=== PATIENT | female | born 1955 | race Caucasian/White ===

== ENCOUNTER 2023-01-26 11:04 | Outpatient (REF) | payer OTHER, SELFPAY ==
[2023-01-26 14:03] LABS: MANUAL DIFF FLAG NO
[2023-01-26 14:12] LABS: Basophils Percent Auto 0.5 % (0-2); Eosinophils Percent Auto 0.2 % (0-4); Hematocrit 45.6 % (37.0-47.0); Hemoglobin 15.5 g/dl (12.0-16.0); Imm Gran Abs Auto 0.03 X10*3/uL (0.00-0.03); Imm Gran Pct Auto 0.5 % (0.0-0.4); Lymphocytes Absolute Auto 1.7 X10*3/uL (1.2-4.9); Mean Corpuscular Hemoglobin 35.9 pg (27.0-33.0); Mean Corpuscular Volume 105.6 fL (80.0-98.0); Mean Platelet Volume 9.5 fL (9.4-12.3); Monocytes Absolute Auto 0.5 X10*3/uL (0.1-1.2); Monocytes Percent Auto 8.4 % (2-11); Neutrophils Absolute Auto 4.1 x10*3/uL (2.0-8.3); Neutrophils Percent Auto 64.4 % (45-73); Platelet Count 223 X10*3/uL (160-400); Red Blood Count 4.32 X10*6/uL (4.20-5.50); Red Cell Distribution Width 12.5 % (11.0-16.0); White Blood Count 6.4 X10*3/uL (4.8-10.8)
[2023-01-26 14:47] LABS: Alanine Aminotransferase 39 U/L (0-31); Albumin Level 4.3 g/dL (3.5-5.0); Alkaline Phosphatase 93 U/L (39-117); Anion Gap 15 (12-20); Aspartate Amino Transferase 65 U/L (5-31); Blood Urea Nitrogen 9 mg/dL (9-16); Calcium 9.6 mg/dL (8.4-10.2); Carbon Dioxide 26 mmol/L (22-29); Chloride 103 mmol/L (96-108); Cholesterol 226 mg/dL; Estimated Glomerular Filt Rate > 60; Glucose Fasting 104 mg/dL (60-99); HDL Cholesterol 89 mg/dL; LDL Cholesterol Calculated 122 mg/dl; Potassium 4.3 mmol/L (3.3-5.1); Sodium 140 mmol/L (135-145); Total Protein 7.1 g/dL (6.5-8.0); Triglycerides 79 mg/dL
[2023-01-26 15:11] LABS: Free T4 (Free Thyroxine) 0.78 ng/dL (0.71-1.85); Thyroid Stimulating Hormone 1.43 uIU/mL (0.32-4.0)
[2023-01-27 20:14] LABS: Thyroid Peroxidase Antibodies <1 IU/mL (<9)
== END 2023-01-26 11:05 | disposition home or self-care (01) ==
LOC: HO.MANLDS 11:04
PROVIDERS: Visit Provider Physician Assistant
DX: Z00.00 Encounter for general adult medical examination without abnormal findings (principal); Z83.49 Family history of other endocrine, nutritional and metabolic diseases; G93.32 Myalgic encephalomyelitis/chronic fatigue syndrome; E78.00 Pure hypercholesterolemia, unspecified
CPT/HCPCS: 36415; 80053; 80061; 84439; 84443; 85025; 86376

== ENCOUNTER 2023-02-11 09:40 | Outpatient (REF) | payer OTHER, SELFPAY ==
--- NOTE | ~2023-02-11 | MR_ITS ---
EXAMINATION: MR LUMBAR SPINE WITHOUT CONTRAST CLINICAL INFORMATION: Intervertebral disc degeneration. The patient states history of fall 8 months prior. COMPARISON: There are no prior studies available for comparison at time of dictation. TECHNIQUE: MRI of the lumbar spine was obtained using routine sequences without contrast. FINDINGS: VERTEBRAL BODIES AND PARASPINAL STRUCTURES: There is mild levoscoliosis. There is a retrolisthesis of L1 on L2. There is multilevel narrowing of intervertebral disc height with loss of signal throughout the lumbar spine. There are degenerative endplate changes with edematous signal at L1-L2. There is a severe compression fracture the body of T12 with posterior protrusion of the superior body into the spinal canal. There is loss of 90% vertebral body height anteriorly. This vertebral body has hyperintense STIR signal, which extends into the bilateral T12 pedicles, and these findings are consistent with an acute compression fracture. Mild edematous signal is seen in the anterior body of T11, but vertebral body height is maintained. There is invagination of disc into the inferior endplate of L1; this is age-indeterminate and may be some acute as there is mild increased signal in the posterior inferior body of L1. There is loss of approximately 40% vertebral body height inferiorly. Milder disc protrusion is seen in the inferior endplate of L2 and there are multilevel Schmorl's nodes. Vertebral body heights are maintained at other levels. There are fatty endplate signal changes at multiple levels. Overall, marrow signal is slightly heterogenous. The paraspinal muscles are fatty atrophic. The right kidney is slightly ptotic. The visualized pelvic structures are unremarkable. CONUS MEDULLARIS AND CAUDA EQUINA: Normal, terminating at the level of L1. Accounting for artifact there is no abnormal signal within the cord. The lower thoracic spinal cord appears normal. The cauda equina nerve roots and filum terminale appear normal. 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 SPINAL LEVELS: T11-T12: There is mild bilateral facet arthropathy. There is posterior protrusion of the posterior body of T12 into the spinal canal which distorts the ventral thecal sac with impingement on the ventral aspect of the spinal cord, without overt compression. There is approximately 30% central stenosis, most prominent to the right of midline. The neural foramina are patent bilaterally. T12-L1: There is mild bilateral facet arthropathy. Posterior disc contour is normal and there is no central stenosis. The neural foramina are patent bilaterally. L1-L2: There is mild to moderate bilateral facet arthropathy. There is a posterior disc protrusion with mild flattening of the ventral thecal sac but there is no central stenosis. There are bilateral foraminal disc protrusions with impingement on the exiting L1 nerve roots. L2-L3: There is moderate bilateral facet arthropathy with ligamenta flava hypertrophy and facet joint effusions. There is a left-sided disc protrusion which narrows the left subarticular recess and extends into the inferior left neural foramen without definite exiting nerve root impingement. There is mild central stenosis. L3-L4: There is moderate bilateral facet arthropathy with ligamenta flava hypertrophy. There is a posterior disc protrusion with mild flattening of the ventral thecal sac. There is epidural lipomatosis which compresses the thecal sac dorsally. There is mild to moderate central stenosis. There is a left foraminal disc protrusion with an annular fissure without exiting nerve root impingement. L4-L5: There is moderate to severe bilateral facet arthropathy with ligamenta flava hypertrophy and facet joint effusions. There is a posterior disc protrusion which is focally more prominent just to the left of midline with an annular fissure and there is some compression of the thecal sac on the left with mild narrowing of the left subarticular recess. Epidural lipomatosis compresses the thecal sac dorsally, but there is no significant central stenosis. There is no foraminal nerve root impingement. L5-S1: There is moderate to severe bilateral facet arthropathy. There is a broad-based posterior disc protrusion extending into the neural foramina bilaterally with impingement on the exiting L5 nerve roots. There is minimal flattening of the ventral thecal sac, and there is no central stenosis. MR/MR lumbar spine wo con IMPRESSION: 1. There is an acute compression fracture of the body of T12 with edematous signal. There is posterior protrusion of the body of T12 into the spinal canal with impingement on the ventral aspect of the spinal cord, and there is approximately 30% central stenosis. There is no overt spinal cord compression. 2. There is invagination of disc into the inferior body of L1, with edematous signal in the posterior inferior body of L1. This is age-indeterminate, but may be subacute. 3. At L1-L2 there is facet arthropathy and there is a posterior disc protrusion with mild flattening of the ventral thecal sac. There are bilateral foraminal disc protrusions impinging on the exiting L1 nerve roots. 4. At L2-L3 there is facet arthropathy and there is a left-sided disc protrusion. There is narrowing of the left subarticular recess and there is mild central stenosis. 5. At L3-L4 there is facet arthropathy and there is a posterior disc protrusion. There is epidural lipomatosis. There is mild to moderate central stenosis. There is no foraminal nerve root impingement. 6. At L5-S1 there is facet arthropathy and there is a broad-based posterior disc protrusion extending into the neural foramina with impingement on the exiting L5 nerve roots. There is no central stenosis. 7. The [facility] staff will call to confirm receipt of this report with acknowledgement of the findings and any recommendations.
== END 2023-02-11 09:41 | disposition home or self-care (01) ==
LOC: HO.MRI 09:40
PROVIDERS: PCP Internal Medicine; Visit Provider Physician Assistant
DX: M51.36 Other intervertebral disc degeneration, lumbar region (principal)
CPT/HCPCS: 72148

== ENCOUNTER 2023-03-09 13:31 | Outpatient (REF) | payer OTHER, SELFPAY ==
--- NOTE | ~2023-03-09 | MM_ITS ---
EXAMINATION: MM SCREENING DIGITAL BREAST TOMOSYNTHESIS, BILATERAL CLINICAL INFORMATION: Screening. Asymptomatic. The lifetime risk of breast cancer based on the Tyrer-Cuzick Model is 2.8%. COMPARISON: Mammography: June 14, 2014 and February 21, 2008 TECHNIQUE: Digital breast tomosynthesis is performed in both the craniocaudal and mediolateral oblique views along with computer-aided detection (CAD). Synthesized 2D images are generated from the tomosynthesis. FINDINGS: There are scattered areas of fibroglandular density (ACR BI-RADS breast composition Category b). There are no significant masses, abnormal calcifications, or other abnormalities. MM/MM tomosynthesis screening BI IMPRESSION: No significant changes ASSESSMENT: BI-RADS 1: Negative RECOMMENDATION: Routine annual mammography screening. This patient's information was entered into a reminder system with a target due date for their next mammogram.
== END 2023-03-09 13:32 | disposition home or self-care (01) ==
LOC: HO.MAMMO 13:31
PROVIDERS: PCP Physician Assistant; Visit Provider Physician Assistant
DX: Z12.31 Encounter for screening mammogram for malignant neoplasm of breast (principal)
CPT/HCPCS: 77063; 77067

== ENCOUNTER 2025-06-13 13:49 | Outpatient (REF) | payer MEDICARE, SELFPAY ==
--- OUTSIDE RECORDS SUMMARY | 2025-06-13 14:31 | XMS_ITS | Encounter Summary ---
Author Organization [facility] Address [address] [facility] [address] [place] [phone] Phone Care Team Providers Care Tumbling And Rolling Supervisor Name Role Phone Santiago Felton Primary Care Provider [phone] Encounter Details Date Type Department Care Team (Late st Contact Info) Description 05/17/2025 Ancillary Orders Virtual Department [address] [place] [address] Hoa Parra PA [address] [facility] [place] [address] [place] [address] Osteopenia of multiple sites (Primary Dx); Other specified disorders of bone density and structure, multiple sites Social History Tobacco Use Types Packs/Day Years Used Date Smoking Tobacco: Never Smokeless Tobacco: Never Education Answer Date Recorded Are you interested in more education? Not on twila e 03/06/2023 Are you concerned about learning? Not on file 03/06/2023 No 03/06/2023 No 03/06/2023 Digital Access Answer Date Recorded No 04/04/2023 No 04/04/2023 Reliable internet access at home? Not on file 04/04/2023 Device with a working camera? Not on file Comments Unknown Sex and Gender Information Value Date Recorded Sex Assigned at Not on file Legal Sex Female 9:53 PM EDT Gender Identity Not on file Sexual Orientation Not on file documented as of this encounter Plan of Treatment Scheduled Orders Name Type Priority Associated Diagnoses Orde r Schedule DXA Screening Imaging Routine Osteopenia of multiple sites Other specified disorders of bone density and structure, multiple sites Expected: 06/16/2025, Expires: 05/17/2026 documented as of this encounter Visit Diagnoses Diagnosis Osteopenia of multiple sites- Primary Other specified disorders of bone density and structure, multiple sites documented in this encounter Care Teams Tumbling And Rolling Supervisor Relationship Specialty Start Date End Date NildaSantiago reeder DO Farhan [email or web address] PCP - General Internal Medicine 06/09/22 documented as of this encounter Additional Source Comments The information contained in this document represents components of the legal health record. It is not the complete legal health record.[facility]
[2025-06-13 18:10] LABS: MANUAL DIFF FLAG NO
[2025-06-13 18:29] LABS: Hematocrit 40.7 % (37.0-47.0); Hemoglobin 14.3 g/dl (12.0-16.0); Imm Gran Abs Auto 0.06 X10*3/uL (0.00-0.03); Imm Gran Pct Auto 0.8 % (0.0-0.4); Lymphocytes Absolute Auto 1.7 X10*3/uL (1.2-4.9); Mean Corpuscular HGB Conc 35.1 g/dl (31.0-35.0); Mean Corpuscular Hemoglobin 34.5 pg (27.0-33.0); Mean Corpuscular Volume 98.3 fL (80.0-98.0); NRBC Abs Auto 0.000 X10*3/uL (0.0-0.012); NRBC Pct Auto 0.0 /100WBC (0.0-0.2); Platelet Count 271 X10*3/uL (160-400); Red Blood Count 4.14 X10*6/uL (4.20-5.50); White Blood Count 7.6 X10*3/uL (4.8-10.8)
[2025-06-13 18:55] LABS: Alanine Aminotransferase 17 U/L (0-31); Albumin Level 4.6 g/dL (3.5-5.0); Alkaline Phosphatase 75 U/L (39-117); Anion Gap 14 (12-20); Aspartate Amino Transferase 33 U/L (5-31); Blood Urea Nitrogen 6 mg/dL (9-16); Calcium 9.0 mg/dL (8.4-10.2); Carbon Dioxide 22 mmol/L (22-29); Chloride 97 mmol/L (96-108); Cholesterol 201 mg/dL (<200); Estimated Glomerular Filt Rate > 60; HDL Cholesterol 70 mg/dL (>40); Potassium 3.9 mmol/L (3.3-5.1); Sodium 129 mmol/L (135-145); Total Protein 7.5 g/dL (6.5-8.0); Triglycerides 89 mg/dL (<150)
[2025-06-13 19:06] LABS: Free T4 (Free Thyroxine) 1.03 ng/dL (0.71-1.85); Thyroid Stimulating Hormone 1.87 uIU/mL (0.32-4.0)
[2025-06-13 19:11] LABS: Folate 10.6 ng/mL (> or = 4.0); Vitamin B12 217 pg/mL (200-900)
[2025-06-13 19:45] LABS: Parathyroid Hormone Intact 86.3 pg/mL (8.7-77.1)
[2025-06-14 07:10] LABS: Hemoglobin A1C 117.3845 umol/L; Total Hemoglobin (HGBA1C) 3700.0532 umol/L
== END 2025-06-13 13:50 | disposition home or self-care (01) ==
LOC: HO.MANLDS 13:49
PROVIDERS: Visit Provider Physician Assistant
DX: Z00.00 Encounter for general adult medical examination without abnormal findings (principal); M51.34 Other intervertebral disc degeneration, thoracic region
CPT/HCPCS: 36415; 80053; 80061; 82306; 82607; 82746; 83036; 83970; 84439; 84443; 85025

== ENCOUNTER 2025-08-18 14:27 | Outpatient (REF) | payer MEDICARE, SELFPAY | END 2025-08-18 14:28 | disposition home or self-care (01) | LOC: HO.MANLDS 14:27 | PROVIDERS: Visit Provider Internal Medicine | DX: M79.10 Myalgia, unspecified site (principal) | CPT/HCPCS: 36415; 85652; 86038; 86140; 86200; 86225; 86431 ==